=== PATIENT | female | born 1935 | race Caucasian/White ===

== ENCOUNTER → 2017-05-23 | Outpatient (CLI) | payer MEDICARE ==
[~2017-05-23] MED LIST: ACDPT PO; AMIO200T2 PO; APIX2.5T PO; ASPI-586 PO; BISO1TAB39 PO; CLC500CT PO; FURO20TA4 PO; LEVO75TA6 PO; OXYC-197 PO; POTA20TA15 PO; ROPI0.5T2 PO; ZLP5T PO
--- NOTE | 2017-05-23 09:42 | Diagnostic Imaging Report ---
INDICATION: Cough. Compared 11/06/2007. FINDINGS: The lungs are clear. The heart size and vascularity within normal limits. 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 No failure, effusion, or pneumothorax. IMPRESSION: Clear hyperexpanded lungs. No pneumothorax or other acute feature with pacemaker appearing unremarkable. Dictated by: Dictated on workstation # [id number]
== END ==
LOC: RAD 09:01
PROVIDERS: ATTEND Internal Medicine
DX: R05 Cough (principal)
CPT/HCPCS: 71020

== ENCOUNTER 2018-07-25 19:01 | Emergency (ER) | payer MEDICARE ==
[~2018-07-25] VITALS: Ht 160 cm; Wt 73.0 kg
[~2018-07-25 19:01] MED LIST changes: -AMIO200T2 PO; +AMIO200T4 PO; -OXYC-197 PO; +OXYC1TAB87 PO
--- NOTE | 2018-07-25 19:11 | ED General ---
General Chief Complaint: Dizziness/Syncope Stated Complaint: FALL Source of Information: Patient, EMS Exam Limitations: No Limitations History of Present Illness Date Seen by Provider: Jul 25, 2018 Time Seen by Provider: 19:09 Initial Comments To ER per EMS from home after reports of a fall. reportedly found her with her head against the wall. She voices no complaints on arrival to ER and is uncertain whether or not she hit her head. She is not sure if she lost consciousness or not. She has no pain anywhere however. She is on Eliquis for atrial fibrillation. Timing/Duration: 1/2 Hour Severity: Moderate Associated Systoms: No Headaches, No Nausea/Vomiting Allergies and Home Medications Allergies Coded Allergies: No Known Drug Allergies (Unverified , 06/04/13) Home Medications Acetaminophen/Diphenhydramine 1 Ea Tab, 1 EA PO HS PRN for SLEEP, (Reported) Amiodarone HCl 200 Mg Tablet, 200 MG PO DAILY, (Reported) Aspirin 81 Mg Tablet.dr, 81 MG PO DAILY, (Reported) Cefuroxime Axetil 250 Mg Tablet, 250 MG PO BID Prescribed by: KERRY LARKIN on 07/25/182008 Levothyroxine Sodium 75 Mcg Tablet, 75 MCG PO DAILY, (Reported) Potassium Chloride 20 Meq Tab.er.prt, 20 MEQ PO DAILY, (Reported) Ropinirole HCl 0.5 Mg Tablet, 0.5 MG PO HS, (Reported) Patient Home Medication List Home Medication List Reviewed: Yes Review of Systems Review of Systems Constitutional: see HPI EENTM: see HPI Respiratory: no symptoms reported Cardiovascular: no symptoms reported Genitourinary: no symptoms reported Musculoskeletal: no symptoms reported Skin: no symptoms reported Psychiatric/Neurological: No Symptoms Reported Hematologic/Lymphatic: No Symptoms Reported Past Vzmwwvx-Gnulis-Ckkdzp Hx Patient Social History Former Smoker, Quit: Jan 14, 1960 Recent Foreign Travel: No Contact w/Someone Who Travel: No Immunizations Up To Date Date of Pneumonia Vaccine: Jun 04, 2009 Date of Influenza Vaccine: May 04, 2013 Past Medical History Reproductive Disorders: No Osteoporosis Physical Exam Vital Signs Vital Signs - First Documented 07/25/18 19:01 Temp 98.3 Pulse 64 Resp 16 B/P (MAP) 132/68 (89) Pulse Ox 97 O2 Delivery Room Air Capillary Refill : Height, Weight, BMI Height: 5'3.00" Weight: 161lbs. 0.0oz. [id number]; 28.5 BMI Method: General Appearance: No Apparent Distress, WD/WN, Other (alert and oriented to person place time and situation. No palpable depressed skull fracture, no scalp hematoma.) Eyes: Bilateral Eye Normal Inspection, Bilateral Eye PERRL, Bilateral Eye EOMI HEENT: PERRL/EOMI, TMs Normal Respiratory: Normal Breath Sounds, No Accessory Muscle Use, No Respiratory Distress Gastrointestinal: Normal Bowel Sounds, Non Tender, Soft Extremity: Normal Capillary Refill, Normal Inspection Neurologic/Psychiatric: Alert, Oriented x3 Skin: Normal Color, Warm/Dry Progress/Results/Core Measures Suspected Sepsis SIRS Temperature: Pulse: Respiratory Rate: Laboratory Tests 07/25/18 19:00: White Blood Count 5.8 Blood Pressure / Mean: Laboratory Tests 07/25/18 19:00: Creatinine 0.84, Platelet Count 182, Total Bilirubin 0.4 Results/Orders Lab Results Laboratory Tests Test 07/25/18 19:00 07/25/18 19:45 Range/Units White Blood Count 5.8 4.3-11.0 10^3/uL Red Blood Count 3.84 L 4.35-5.85 10^6/uL Hemoglobin 12.0 11.5-16.0 G/DL Hematocrit 37 35-52 % Mean Corpuscular Volume 95 80-99 FL Mean Corpuscular Hemoglobin 31 25-34 PG Mean Corpuscular Hemoglobin Concent 33 32-36 G/DL Red Cell Distribution Width 13.7 10.0-14.5 % Platelet Count 182 130-400 10^3/uL Mean Platelet Volume 9.3 7.4-10.4 FL Neutrophils (%) (Auto) 54 42-75 % Lymphocytes (%) (Auto) 36 12-44 % Monocytes (%) (Auto) 5 0-12 % Eosinophils (%) (Auto) 5 0-10 % Basophils (%) (Auto) 0 0-10 % Neutrophils # (Auto) 3.1 1.8-7.8 X 10^3 Lymphocytes # (Auto) 2.1 1.0-4.0 X 10^3 Monocytes # (Auto) 0.3 0.0-1.0 X 10^3 Eosinophils # (Auto) 0.3 0.0-0.3 10^3/uL Basophils # (Auto) 0.0 0.0-0.1 10^3/uL Sodium Level 141 135-145 MMOL/L Potassium Level 3.5 L 3.6-5.0 MMOL/L Chloride Level 105 98-107 MMOL/L Carbon Dioxide Level 26 21-32 MMOL/L Anion Gap 10 5-14 MMOL/L Blood Urea Nitrogen 13 7-18 MG/DL Creatinine 0.84 0.60-1.30 MG/DL Estimat Glomerular Filtration Rate > 60 BUN/Creatinine Ratio 15 Glucose Level 84 70-105 MG/DL Calcium Level 8.9 8.5-10.1 MG/DL Corrected Calcium 9.1 8.5-10.1 MG/DL Total Bilirubin 0.4 0.1-1.0 MG/DL Aspartate Amino Transf (AST/SGOT) 17 5-34 U/L Alanine Aminotransferase (ALT/SGPT) 10 0-55 U/L Alkaline Phosphatase 95 40-136 U/L Total Protein 6.4 6.4-8.2 GM/DL Albumin 3.8 3.2-4.5 GM/DL Urine Color YELLOW Urine Clarity CLEAR Urine pH 6 5-9 Urine Specific [place] 1.015 L 1.016-1.022 Urine Protein NEGATIVE NEGATIVE Urine Glucose (UA) NEGATIVE NEGATIVE Urine Ketones NEGATIVE NEGATIVE Urine Nitrite NEGATIVE NEGATIVE Urine Bilirubin NEGATIVE NEGATIVE Urine Urobilinogen NORMAL NORMAL MG/DL Urine Leukocyte Esterase 3+ H NEGATIVE Urine RBC (Auto) 3+ H NEGATIVE Urine RBC 5-10 H /HPF Urine WBC 5-10 H /HPF Urine Squamous Epithelial Cells 2-2 /HPF Urine Crystals NONE /LPF Urine Bacteria FEW H /HPF Urine Casts NONE /LPF Urine Mucus NEGATIVE /LPF Urine Culture Indicated YES My Orders Orders - KERRY LARKIN APRN Ct Head/Cervical Spine Wo (07/25/18 19:04) Cbc With Automated Diff (07/25/18 19:07) Comprehensive Metabolic Panel (07/25/18 19:07) Ua Culture If Indicated (07/25/18 19:07) Iv Heplock-Insert (Order) (07/25/18 19:07) Ekg Tracing (07/25/18 19:17) Continuous Ekg Monitoring (07/25/18 19:17) Urine Culture (07/25/18 19:45) Cefdinir Capsule (Omnicef Capsule) (07/25/18 20:15) Medications Given in ED Current Medications Medications Dose Ordered Sig/Diana Route Start Time Stop Time Status Last Admin Dose Admin Cefdinir 300 mg ONCE ONCE PO 07/25/18 20:15 07/25/18 20:16 DC 07/25/18 20:21 300 MG Vital Signs/I&O 07/25/18 07/25/18 19:01 20:25 Temp 98.3 98.3 Pulse 64 64 Resp 16 33 B/P (MAP) 132/68 (89) 102/54 (70) Pulse Ox 97 97 O2 Delivery Room Air Room Air Capillary Refill : Departure Communication (Admissions) 2004-patient's is at the bedside. He states that initially she was on when moaning and making noises and not making any sense. He states it took about 20 minutes for her to begin talking and making more sense. She still doesn 't seem quite back to normal as she does not recall being on the floor or were that may have happened but she is alert and oriented to person place and time. Impression Primary Impression: Urinary tract infection Qualified Codes: N30.00 - Acute cystitis without hematuria Additional Impression: Fall Qualified Codes: W19.XXXA - Unspecified fall, initial encounter Disposition: HOME, SELF-CARE Condition: Stable Departure-Patient Inst. Decision time for Depature: 20:06 Referrals: FIGUEROA GROVES DO (PCP/Family) Primary Care Physician Patient Instructions: Urinary Tract Infection, Adult (DC) Add. Discharge Instructions: 1. Call Dr. Groves tomorrow to make an appointment to be seen preferably tomorrow or Monday. Return to the emergency room for any headaches or increasing confusion. Antibiotics as directed starting tomorrow. All discharge instructions reviewed with patient and/or family. Voiced understanding. Scripts Cefuroxime Axetil (Cefuroxime) 250 Mg Tablet 250 MG PO BID, #10 TAB Prov: KERRY LARKIN ADJ[employer]CT PSYCHOLOGY INSTRUCTOR 07/25/18 Copy Copies To 1: FIGUEROA GROVES PETER J ADJUNCT PSYCHOLOGY INSTRUCTOR Jul 25, 2018 19:11
[2018-07-25] MEDS ORDERED: CITA20TA9 (19:12)
[2018-07-25] MEDS ORDERED: ZOLP10TA5 (19:12)
[2018-07-25] MEDS ORDERED: CLOP75TA28 (19:12)
[2018-07-25] MEDS ORDERED: TRAZ-190 (19:12)
[2018-07-25] MEDS ORDERED: DILT-27 (19:12)
[2018-07-25] MEDS ORDERED: FURO40TA4 (19:12)
[2018-07-25] MEDS ORDERED: CARV6.252 (19:12)
[2018-07-25 19:17] LABS: BASOPHILS % (AUTO) 0 % (0-10); EOSINOPHILS # (AUTO) 0.3 10^3/uL (0.0-0.3); EOSINOPHILS % (AUTO) 5 % (0-10); HEMATOCRIT 37 % (35-52); LYMPHOCYTES # (AUTO) 2.1 X 10^3 (1.0-4.0); LYMPHOCYTES % (AUTO) 36 % (12-44); MEAN CORPUSCULAR HEMOGLOBIN 31 PG (25-34); MEAN CORPUSCULAR HGB CONC 33 G/DL (32-36); MEAN CORPUSCULAR VOLUME 95 FL (80-99); MEAN PLATELET VOLUME 9.3 FL (7.4-10.4); MONOCYTES # (AUTO) 0.3 X 10^3 (0.0-1.0); MONOCYTES % (AUTO) 5 % (0-12); NEUTROPHILS # (AUTO) 3.1 X 10^3 (1.8-7.8); NEUTROPHILS % (AUTO) 54 % (42-75); PLATELET COUNT 182 10^3/uL (130-400); RED BLOOD COUNT 3.84 10^6/uL (4.35-5.85); RED CELL DISTRIBUTION WIDTH 13.7 % (10.0-14.5); WHITE BLOOD COUNT 5.8 10^3/uL (4.3-11.0)
[2018-07-25 19:27] LABS: ALANINE AMINOTRANSFERASE 10 U/L (0-55); ALBUMIN 3.8 GM/DL (3.2-4.5); ALKALINE PHOSPHATASE 95 U/L (40-136); BILIRUBIN,TOTAL 0.4 MG/DL (0.1-1.0); BUN/CREATININE RATIO 15; CALCIUM 8.9 MG/DL (8.5-10.1); CARBON DIOXIDE 26 MMOL/L (21-32); CHLORIDE 105 MMOL/L (98-107); CREATININE SERUM 0.84 MG/DL (0.60-1.30); GFR ESTIMATED > 60; GLUCOSE 84 MG/DL (70-105); POTASSIUM 3.5 MMOL/L (3.6-5.0); SODIUM 141 MMOL/L (135-145); TOTAL PROTEIN 6.4 GM/DL (6.4-8.2)
--- NOTE | 2018-07-25 19:45 | Diagnostic Imaging Report ---
PROCEDURE: CT head and CT cervical spine without contrast. TECHNIQUE: Multiple contiguous axial images were obtained through the brain and cervical spine without the use of intravenous contrast. Sagittal and coronal reformations through the cervical spine were then performed. INDICATION: Fall. COMPARISON: None. FINDINGS: CT head: Advanced generalized cerebral and cerebellar parenchymal volume loss. Advanced leukoaraiosis. No CT evidence for territorial infarction. No intracranial hemorrhage, mass effect, hydrocephalus or extra-axial fluid collections. Osseous structures are intact. The partially visualized paranasal sinuses and mastoids are clear. CT cervical spine: Grade 1 anterolisthesis of C3 on C4 and C4 on C5. Moderate to advanced degenerative endplate changes are greatest at C5-C7. Vertebral body heights are preserved. No fractures. Spondylotic changes result in at least mild, possibly moderate, spinal canal narrowing at C5-C6 and C6-C7. Visualized paravertebral soft tissues are unremarkable. IMPRESSION: No acute intracranial or cervical spine CT findings. Chronic findings as above. Dictated by: Dictated on workstation # [id number]
[2018-07-25 19:56] LABS: BILIRUBIN,URINE NEGATIVE (NEGATIVE); CLARITY,URINE CLEAR; COLOR,URINE YELLOW; GLUCOSE, URINE (UA) NEGATIVE (NEGATIVE); KETONES,URINE NEGATIVE (NEGATIVE); LEUKOCYTE ESTERASE ,URINE 3+ (NEGATIVE); NITRITE,URINE NEGATIVE (NEGATIVE); PH,URINE 6 (5-9); PROTEIN,URINE NEGATIVE (NEGATIVE); UROBILINOGEN,URINE NORMAL (NORMAL)
[2018-07-25 20:04] LABS: BACTERIA,URINE FEW /HPF
[2018-07-25] MEDS ORDERED: CEFU250T80 PO (20:09)
[2018-07-25] MEDS ORDERED: CEFDINIR 300 MG (OMNICEF) CAP PO ONE (20:15)
[2018-07-25 20:25] VITALS: BP 102/54
== END 2018-07-25 20:20 | disposition home or self-care (01) ==
LOC: EDUNIT# 19:01 → ER 19:02
DX: Z04.3 Encounter for examination and observation following other accident (principal); N39.0 Urinary tract infection, site not specified; I48.91 Unspecified atrial fibrillation; M81.0 Age-related osteoporosis without current pathological fracture; Z79.01 Long term (current) use of anticoagulants; Z79.82 Long term (current) use of aspirin; Z87.891 Personal history of nicotine dependence; W19.XXXA Unspecified fall, initial encounter
CPT/HCPCS: 36415; 70450; 72125; 80053; 81000; 85025; 87088; 93005; 93041

== ENCOUNTER 2018-08-20 11:29 | Outpatient (RCR) | payer MEDICARE ==
[~2018-08-20 11:29] MED LIST changes: +CARV6.252; +CEFU250T80 PO; +CITA20TA9; +CLOP75TA28; +DILT-27; +FURO40TA4; +TRAZ-190; +ZOLP10TA5
== END 2018-08-23 | disposition home or self-care (01) ==
LOC: CR 11:29
PROVIDERS: ATTEND Internal Medicine Interventional Cardiology
DX: Z48.812 Encounter for surgical aftercare following surgery on the circulatory system (principal); Z95.5 Presence of coronary angioplasty implant and graft
CPT/HCPCS: 93798